=== PATIENT | male | born 1975 | race Caucasian/White ===

== ENCOUNTER 2021-07-25 23:09 | Emergency (ER) | payer BC, SELFPAY ==
--- OUTSIDE RECORDS SUMMARY | 2021-07-25 23:11 | XMS REPORT | Continuity of Care Document ---
:1975 Author Organization [facility] t Address [facility] Sung [address] [place] [id number] Care Team Providers Name Role Phone GISELLE Attending Clinician Unavailable Problems This patient has no known problems. Allergies, Adverse Reactions, Alerts This patient has no known allergies or adverse reactions. Medications This patient has no known medications. Procedures This patient has no known procedures. Encounters Start End Encounter Admission Attending Care Care Encounter Source Date/Time Date/Time Type Type Clinicians Facility Department ID 2021-06-16 2021-06-16 Outpatient AMANDA DESAI [id number] Amanda 16:30:00 16:30:00 NOREEN elias Results This patient has no known results.
[2021-07-26] MEDS ORDERED: LIDOCAINE 2% MPF 5 ML VIAL ONE (00:18)
[2021-07-26] MEDS ORDERED: ONDANSETRON 4 MG/2 ML VIAL ONE (00:19)
[2021-07-26] MEDS ORDERED: MORPHINE 4 MG/ML SYR ONE (00:19)
[2021-07-26] MEDS ORDERED: BUPIVACAINE 0.5% PF 10 ML VIAL ONE (00:19)
[2021-07-26] MEDS ORDERED: CLINDAMYCIN 900MG/D5W 900 MG/50 ML IVPB IV ONE (00:20)
[2021-07-26] MEDS ORDERED: NA CHLORIDE 0.9% 1,000 ML ONE (00:20)
[2021-07-26 00:36] LABS: Absolute Lymphocytes (CBC) 0.7 K/uL (0.7-4.9); Basophils % 0.4 % (0-1.3); Lymphocytes % 7.2 % (15.3-44.8); MPV 7.7 fL (7.6-11.3); RBC Red Blood Cell Count 4.95 M/uL (4.33-5.43)
[2021-07-26 00:51] LABS: Potassium 3.7 mmol/L (3.5-5.1)
--- NOTE | 2021-07-26 01:47 | EDPHYS ---
Physician Documentation [facility] Name: Casa Chauhan Age: 46 yrs Sex: Male : 1975 Arrival Date: 07/25/2021 Time: 23:14 Bed 11 Private MD: ED Physician Andrew Villavicencio HPI: 07/26 00:20 This 46 yrs old Male presents to ER via Ambulatory with complaints of Toothache, Facial cp Swelling. 00:20 The patient presents with pain. The problem is located in the right upper back molar. cp Onset: The symptoms/episode began/occurred for past several months, became worse over past 2 days. Duration: The symptoms are continuous, and are steadily getting worse. Modifying factors: the symptoms are aggravated by chewing. Associated signs and symptoms: Pertinent positives: fever, swelling, facial, earache, Pertinent negatives: dysphagia, inability to eat. Severity of symptoms: in the emergency department the symptoms are unchanged, despite home interventions. Historical: - Allergies: 07/25 23:26 No Known Allergies; aj1 - Home Meds: 23:26 None [Active]; aj1 - PMHx: 23:26 HTN; aj1 - PSHx: 23:26 None; aj1 - Immunization history:: Flu vaccine is not up to date. - Social history:: Smoking status: Patient/guardian denies using tobacco. ROS: 07/26 00:25 Cardiovascular: Negative for chest pain. cp 00:25 Eyes: Negative for injury, pain, redness, and discharge. cp 00:25 Constitutional: Negative for body aches, chills, fever, poor PO intake. 00:25 ENT: Positive for dental pain, ear pain, Negative for drainage from ear(s), sore throat, difficulty swallowing, difficulty handling secretions. 00:25 Respiratory: Negative for cough, shortness of breath, wheezing. 00:25 Abdomen/GI: Negative for abdominal pain, vomiting, diarrhea, constipation. 00:25 : Negative for urinary symptoms. 00:25 Neuro: Negative for altered mental status, headache, weakness. 00:25 All other systems are negative. Exam: 00:30 Constitutional: The patient appears in no acute distress, alert, awake, non-toxic, well cp developed, well nourished. 00:30 Head/Face: Normocephalic, atraumatic. cp 00:30 Eyes: Periorbital structures: appear normal, Conjunctiva: normal, no exudate, no injection, Sclera: no appreciated abnormality, Lids and lashes: appear normal, bilaterally. 00:30 ENT: External ear(s): are unremarkable, Ear canal(s): are normal, clear, TM's: dullness, bilaterally, Nose: is normal, Mouth: Lips: moist, Oral mucosa: pink and intact, moist, Gums: noted to have an abscess, swollen, on the inner gumline of right upper back molar, Tongue: is normal, Posterior pharynx: Airway: no evidence of obstruction, patent, Tonsils: are normal in appearance, Uvula: midline, Dental exam: pain, that is severe, specifically in the upper right third molar (#1), Voice: is normal. 00:30 Neck: ROM/movement: is normal, is supple, without pain, no range of motions limitations, Lymph nodes: no appreciated lymphadenopathy. 00:30 Chest/axilla: Inspection: normal. 00:30 Cardiovascular: Rate: tachycardic, Rhythm: regular. 00:30 Respiratory: the patient does not display signs of respiratory distress, Respirations: normal, no use of accessory muscles, no retractions, labored breathing, is not present, Breath sounds: are clear throughout, no decreased breath sounds, no stridor, no wheezing. 00:30 Abdomen/GI: Exam negative for discomfort, distension, guarding, Inspection: abdomen appears normal. 00:30 Skin: cellulitis, is not appreciated, no rash present. 00:30 Neuro: Orientation: to person, place \T\ time. Mentation: is normal. Vital Signs: 07/25 23:23 BP 174 / 109; Pulse 125; Resp 18; Temp 98.8; Pulse Ox 99% on R/A; Weight 122.47 kg (R); aj1 Height 5 ft. 11 in. (180.34 cm) (R); Pain 06/14; 07/26 01:30 BP 147 / 94; Pulse 103; Resp 16 S; Pulse Ox 93% on R/A; bb 07/25 23:23 Body Mass Index 37.66 (122.47 kg, 180.34 cm) aj1 MDM: 00:08 Patient medically screened. cp 01:45 Data reviewed: vital signs, nurses notes, lab test result(s). cp 01:45 Differential diagnosis: dental caries, dental abscess. Counseling: I had a detailed cp discussion with the patient and/or guardian regarding: the historical points, exam findings, and any diagnostic results supporting the discharge/admit diagnosis, lab results, the need for outpatient follow up, for definitive care, a dentist, to return to the emergency department if symptoms worsen or persist or if there are any questions or concerns that arise at home. Response to treatment: the patient's symptoms have markedly improved after treatment, and as a result, I will discharge patient. ED course: VSS. Pain markedly improved. Patient appears non-toxic. Will discharge to home for continued monitoring. 07/26 00:15 Order name: CBC with Diff cp 07/26 00:15 Order name: BMP; Complete Time: 01: cp 07/26 00:15 Order name: CBC with Automated Diff; Complete Time: 01: EDMS 07/26 00:15 Order name: IV; Complete Time: 01: cp 07/26 00:15 Order name: I\T\D Setup; Complete Time: 01: cp Administered Medications: 00:31 Drug: NS 0.9% 1000 ml Route: IV; Rate: 1 bolus; Site: right antecubital; bb :29 Follow up: IV Status: Completed infusion; IV Intake: 1000ml bb 00:31 Drug: Zofran (Ondansetron) 4 mg Route: IVP; Site: right antecubital; bb 01:02 Follow up: Response: No adverse reaction bb 00:33 Drug: morphine 4 mg Route: IVP; Site: right antecubital; bb 01:01 Follow up: Response: No adverse reaction; Pain is decreased; RASS: Alert and Calm (0) bb 00:35 Drug: Clindamycin 900 mg Route: IVPB; Infused Over: 30 mins; Site: right antecubital; bb 01:05 Follow up: IV Status: Completed infusion; IV Intake: 50ml bb :29 Drug: Marcaine (bupivacaine) (0.5 %) 5 ml {Note: by Mane LEIGH to affected area.} bb Volume: 10 ml; Route: Infiltration; Drug: Lidocaine (1 %) 5 ml {Note: by Mane LEIGH to affected area.} Volume: 5 ml; bb Route: Infiltration; 02:02 Follow up: Response: No adverse reaction bb 02:02 Follow up: Response: No adverse reaction bb Disposition: 19:08 Co-signature as Attending Physician, Andrew Villavicencio MD. [email or web address] Disposition Summary: 07/26/21 01:46 Discharge Ordered Location: Home cp Problem: new cp Symptoms: have improved cp Condition: Stable cp Diagnosis - Disorder of teeth and supporting structures, unspecified cp Followup: cp - With: Private Physician - When: 2 - 3 days - Reason: Recheck today's complaints Discharge Instructions: - Discharge Summary Sheet cp - Dental Abscess cp - Dental Pain cp Forms: - Medication Reconciliation Form cp - Thank You Letter cp - Antibiotic Education cp - Prescription Opioid Use cp Prescriptions: - Clindamycin HCl 300 mg Oral Capsule - take 1 capsule by ORAL route every 6 hours for 10 days; 40 capsule; Refills: 0, cp Product Selection Permitted - Ibuprofen 800 mg Oral Tablet - take 1 tablet by ORAL route every 8 hours As needed take with food; 30 tablet; cp Refills: 0, Product Selection Permitted - Tramadol 50 mg Oral Tablet - take 1 tablet by ORAL route every 8 hours as needed; 12 tablet; Refills: 0, cp Product Selection Permitted Signatures: Dispatcher [employer] Rosa Hinton RN RN aj1 Marlyn Inman RN RN bb Mane Wood PA PA cp Holmes, Maurice, MD MD [email or web address]
--- NOTE | 2021-07-26 01:47 | ER ---
Nurse's Notes [facility] Name: Casa Chauhan Age: 46 yrs Sex: Male : 1975 Arrival Date: 07/25/2021 Time: 23:14 Bed 11 Private MD: Diagnosis: Disorder of teeth and supporting structures, unspecified Presentation: 07/25 23:23 Chief complaint: Patient states: Toothache for the past few months, but the past 2 days aj1 it got worse he started having swelling in his gums and a lot of pain. States he felt that he was running a fever earlier, but he took Aleve and that brought it down]. Coronavirus screen: Vaccine status: Patient reports being unvaccinated. Ebola Screen: Patient denies travel to an Ebola-affected area in the 21 days before illness onset. Initial Sepsis Screen: Does the patient meet any 2 criteria? HR > 90 bpm. No. Patient's initial sepsis screen is negative. Does the patient have a suspected source of infection? Yes: Other: infected tooth. Risk Assessment: Do you want to hurt yourself or someone else? Patient reports no desire to harm self or others. Onset of symptoms was 2020. 23:23 Method Of Arrival: Ambulatory aj1 23:23 Acuity: CONNIE 3 aj1 Triage Assessment: 23:26 General: Appears in no apparent distress. uncomfortable, Behavior is calm, cooperative, aj1 appropriate for age. Pain: Complains of pain in mouth Pain radiates to right ear Pain currently is 10 out of 10 on a pain scale. Quality of pain is described as sharp. EENT: Reports pain in mouth swelling noted to gums around infected tooth. Neuro: Level of Consciousness is awake, alert, obeys commands. Cardiovascular: Patient's skin is warm and dry. Respiratory: Airway is patent Respiratory effort is even, unlabored, Respiratory pattern is regular, symmetrical. Derm: Skin is pink, warm \T\ dry. normal. Musculoskeletal: Circulation, motion, and sensation intact. Historical: - Allergies: 23:26 No Known Allergies; aj1 - Home Meds: 23:26 None [Active]; aj1 - PMHx: 23:26 HTN; aj1 - PSHx: 23:26 None; aj1 - Immunization history:: Flu vaccine is not up to date. - Social history:: Smoking status: Patient/guardian denies using tobacco. Screenin/21 00:09 Abuse screen: Denies threats or abuse. Nutritional screening: No deficits noted. bb Tuberculosis screening: No symptoms or risk factors identified. Fall Risk None identified. Assessment: 00:09 General: Appears in no apparent distress. uncomfortable, Behavior is calm, cooperative. bb Pain: Complains of pain in right upper jaw. Neuro: Level of Consciousness is awake, alert, obeys commands, Oriented to person, place, time, situation. Cardiovascular: Capillary refill < 3 seconds Patient's skin is warm and dry. Respiratory: Respiratory effort is even, unlabored, Respiratory pattern is regular. GI: No signs and/or symptoms were reported involving the gastrointestinal system. EENT: swelling to right upper gum area. Derm: Skin is pink, warm \T\ dry. Musculoskeletal: Circulation, motion, and sensation intact. 01:02 Reassessment: Patient and/or family updated on plan of care and expected duration. Pain bb level reassessed. pt states pain has improved now 02/12. 01:29 Reassessment: Patient is alert, oriented x 3, equal unlabored respirations, skin bb warm/dry/pink. awaiting ED provider. 02:02 Reassessment: Patient and/or family updated on plan of care and expected duration. Pain bb level reassessed. pt verbalized understanding of and agrees to plan of care discharge instructions given pt ambulated with steady gait to exit accompanied by spouse. Vital Signs: 07/25 23:23 BP 174 / 109; Pulse 125; Resp 18; Temp 98.8; Pulse Ox 99% on R/A; Weight 122.47 kg (R); aj1 Height 5 ft. 11 in. (180.34 cm) (R); Pain 06/14; 07/26 01:30 BP 147 / 94; Pulse 103; Resp 16 S; Pulse Ox 93% on R/A; bb 07/25 23:23 Body Mass Index 37.66 (122.47 kg, 180.34 cm) aj1 ED Course: 07/25 23:14 Patient arrived in ED. 23:26 Triage completed. aj1 23:26 Arm band placed on Patient placed in waiting room. aj 07/26 00:01 Mane Wood PA is PHCP. cp 00:01 Andrew Villavicencio MD is Attending Physician. cp 00:09 Marlyn Inman RN is Primary Nurse. bb 00:09 Patient has correct armband on for positive identification. Bed in low position. Call bb light in reach. 00:30 Initial lab(s) drawn, by me, sent to lab. Inserted saline lock: 18 gauge in right bb antecubital area, using aseptic technique. Blood collected. 02:03 No provider procedures requiring assistance completed. IV discontinued, intact, bb bleeding controlled, No redness/swelling at site. Pressure dressing applied. Administered Medications: 00:31 Drug: NS 0.9% 1000 ml Route: IV; Rate: 1 bolus; Site: right antecubital; bb 01:29 Follow up: IV Status: Completed infusion; IV Intake: 1000ml bb 00:31 Drug: Zofran (Ondansetron) 4 mg Route: IVP; Site: right antecubital; bb 01:02 Follow up: Response: No adverse reaction bb 00:33 Drug: morphine 4 mg Route: IVP; Site: right antecubital; bb 01:01 Follow up: Response: No adverse reaction; Pain is decreased; RASS: Alert and Calm (0) bb 00:35 Drug: Clindamycin 900 mg Route: IVPB; Infused Over: 30 mins; Site: right antecubital; bb 01:05 Follow up: IV Status: Completed infusion; IV Intake: 50ml bb 01:29 Drug: Marcaine (bupivacaine) (0.5 %) 5 ml {Note: by Mane LEIGH to affected area.} bb Volume: 10 ml; Route: Infiltration; : Drug: Lidocaine (1 %) 5 ml {Note: by Mane LEIGH to affected area.} Volume: 5 ml; bb Route: Infiltration; 02:02 Follow up: Response: No adverse reaction bb 02: Follow up: Response: No adverse reaction bb Intake: 01:05 IV: 50ml; Total: 50ml. bb 01: IV: 1000ml; Total: 1050ml. bb Outcome: 01:46 Discharge ordered by . cp 02:03 Discharged to home ambulatory. bb 02:03 Condition: stable 02:03 Discharge instructions given to patient, Instructed on discharge instructions, follow up and referral plans. medication usage, Demonstrated understanding of instructions, follow-up care, medications, Prescriptions given X 3. 02:03 Patient left the ED. bb Signatures: Rosa Spears RN RN aj1 Marlyn Inman RN RN bb Mane Wood PA PA cp Marsh, Wendy
[2021-07-26 02:08] VITALS: TEMP 98.8
[2021-07-26 02:10] VITALS: BP 147/94; O2SAT 93
== END 2021-07-26 02:03 | disposition home or self-care (01) ==
LOC: ER 23:09
DX: K08.89 Other specified disorders of teeth and supporting structures (principal)
CPT/HCPCS: 36415; 80048; 85025; 96365; 96375; 99284; J2405; J7030